=== PATIENT | male | born 1995 | race Caucasian/White ===

== ENCOUNTER 2019-10-29 10:32 | Emergency (ER) | payer SELFPAY ==
[~2019-10-29] VITALS: Ht 180.3 cm; Wt 95.3 kg
[2019-10-29 10:37] VITALS: Ht 180.3 cm; Wt 95.3 kg
[2019-10-29 11:38] VITALS: BP 149/90
== END 2019-10-29 11:38 | disposition home or self-care (01) ==
LOC: ED 10:32
DX: S61.411A Laceration without foreign body of right hand, initial encounter (principal); W01.0XXA Fall on same level from slipping, tripping and stumbling without subsequent striking against object, initial encounter; Y93.89 Activity, other specified; Y92.89 Other specified places as the place of occurrence of the external cause; Y99.8 Other external cause status
CPT/HCPCS: J2001